=== PATIENT | female | born 1950 | race Caucasian/White ===

== ENCOUNTER → 2016-09-24 | Outpatient (CLI) | payer MEDICARE, OTHER ==
--- NOTE | 2016-09-24 22:54 | MR ---
EXAMINATION TYPE: MR brain wo con DATE OF EXAM: 09/24/2016 9:03 PM COMPARISON: NONE HISTORY: Epistaxis T1-weighted sagittal, T2, FLAIR, and diffusion axial, and T2 coronal coronal views of the brain are s ubmitted. There is no evidence of acute ischemia. The ventricles, basal cisterns, and sulci overlying the conv exities are consistent with the patient's age. There is no mass effect. Craniocervical junction maintained. Partially empty sella turcica noted. No cerebellopontine angle ma ss. There is mild generalized degenerative change. There is abnormal signal within the external capsule a nd basal ganglia bilaterally. Findings suggestive of remote infarctions. There appear most areas as w ell as confluent areas of abnormal signal throughout the white matter of both cerebral hemispheres in a nonspecific pattern. Changes of chronic sinusitis noted. IMPRESSION: 1. No acute intracranial process. 2. 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 Dem yelinating process not entirely excluded. 3. Chronic sinusitis.
== END | disposition home or self-care (01) ==
LOC: RADMRIMAIN 20:25
PROVIDERS: ATTEND Family Medicine
DX: R90.82 White matter disease, unspecified (principal); E04.0 Nontoxic diffuse goiter
CPT/HCPCS: 70551

== ENCOUNTER → 2017-03-06 | Outpatient (CLI) | payer MEDICARE, OTHER ==
--- NOTE | 2017-03-06 14:35 | MR ---
EXAMINATION TYPE: MR cervical spine wo con DATE OF EXAM: 03/06/2017 2:14 PM COMPARISON: NONE HISTORY: Cervicalgia Multiplanar MultiSpin echo imaging of the cervical spine was performed. Comparison: none C2-C3: No evidence for degenerative disc disease. No disc bulge/herniation or protrusion. No Canal stenosis. Foramina are patent bilaterally. C3-C4: No evidence for degenerative disc disease. No disc bulge/herniation or protrusion. No Canal stenosis. Foramina are patent bilaterally. C4-C5: Severe disc desiccation is noted. Circumferential disc bulge greatest posteriorly with encapsu lating spur resulting in hard disc. There is effacement of the ventral thecal sac with minimal ventra l cord contact. Mild central stenosis is identified. Degenerative change of the uncovertebral joints resulting in bilateral foraminal encroachment being mild in degree. C5-C6: Severe disc desiccation is noted. Circumferential disc bulge greatest posteriorly with encapsu lating spur resulting in hard disc. There is effacement of the ventral thecal sac with minimal ventra l cord contact. Mild central stenosis is identified. Degenerative change of the uncovertebral joints resulting in bilateral foraminal encroachment being mild in degree. C6-C7: Severe disc desiccation is noted. Circumferential disc bulge greatest posteriorly with encapsu lating spur resulting in hard disc. There is effacement of the ventral thecal sac with minimal ventra l cord contact. Mild central stenosis is identified. Degenerative change of the uncovertebral joints resulting in bilateral foraminal encroachment being mild in degree. C7-T1: No evidence for degenerative disc disease. No disc bulge/herniation or protrusion. No Canal stenosis. Foramina are patent bilaterally. Cervical segments are intact. There is normal alignment. Cervical spinal cord is of normal signal. Craniovertebral junction relationships are within normal limits. IMPRESSION: 1. Degenerative disc disease as discussed. 2. 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 No evidenc e for compressive myelopathy at this time.
== END | disposition home or self-care (01) ==
LOC: RADMRIMAIN 13:49
PROVIDERS: ATTEND Psychiatry & Neurology Neurology
DX: M48.02 Spinal stenosis, cervical region (principal); M50.30 Other cervical disc degeneration, unspecified cervical region; Z88.0 Allergy status to penicillin; Z88.2 Allergy status to sulfonamides
CPT/HCPCS: 72141

== ENCOUNTER → 2017-06-28 | Outpatient (CLI) | payer MEDICARE, OTHER ==
[2017-06-28 10:52] LABS: Basophils # (A) 0.1 k/uL (0-0.2); Basophils % (A) 1 %; Eosinophils # (A) 0.1 k/uL (0-0.7); Eosinophils % (A) 1 %; HCT 47.2 % (34.0-46.0); HGB 15.1 gm/dL (11.4-16.0); Lymphocytes # (A) 2.8 k/uL (1.0-4.8); Lymphocytes % (A) 28 %; MCH 29.9 pg (25.0-35.0); MCHC 31.9 g/dL (31.0-37.0); MCV 93.5 fL (80.0-100.0); Mean Platelet Volume 8.3; Monocytes # (A) 0.6 k/uL (0-1.0); Monocytes % (A) 6 %; Neutrophils # (A) 6.3 k/uL (1.3-7.7); Neutrophils % (A) 63 %; Platelet Count 231 k/uL (150-450); RBC 5.05 m/uL (3.80-5.40); RDW 14.8 % (11.5-15.5)
[2017-06-28 10:59] LABS: ALT 43 U/L (9-52); AST 24 U/L (14-36); Albumin 4.2 g/dL (3.5-5.0); Alkaline Phosphatase 75 U/L (38-126); Anion Gap 10 mmol/L; Blood Urea Nitrogen 19 mg/dL (7-17); Calcium 9.8 mg/dL (8.4-10.2); Carbon Dioxide 30 mmol/L (22-30); Chloride 105 mmol/L (98-107); Glucose 98 mg/dL (74-99); Potassium 3.5 mmol/L (3.5-5.1); Sodium 145 mmol/L (137-145); Total Bilirubin 1.1 mg/dL (0.2-1.3); Total Protein 6.9 g/dL (6.3-8.2)
[2017-06-28 11:15] LABS: T4, Free (Free Thyroxine) 1.26 ng/dL (0.78-2.19)
== END | disposition home or self-care (01) ==
LOC: LABWHC1 10:17
PROVIDERS: ATTEND Family Medicine
DX: E03.9 Hypothyroidism, unspecified (principal); E78.5 Hyperlipidemia, unspecified
CPT/HCPCS: 36415; 80053; 84439; 84443; 84481; 85025

== ENCOUNTER → 2018-07-17 | Outpatient (CLI) | payer MEDICARE, OTHER ==
[2018-07-17 11:22] LABS: Basophils % (A) 1 %; Eosinophils # (A) 0.1 k/uL (0-0.7); Eosinophils % (A) 2 %; HCT 44.2 % (34.0-46.0); HGB 14.4 gm/dL (11.4-16.0); Lymphocytes # (A) 1.9 k/uL (1.0-4.8); Lymphocytes % (A) 32 %; MCH 30.5 pg (25.0-35.0); MCHC 32.5 g/dL (31.0-37.0); MCV 93.8 fL (80.0-100.0); Mean Platelet Volume 8.1; Monocytes # (A) 0.4 k/uL (0-1.0); Monocytes % (A) 6 %; Neutrophils # (A) 3.4 k/uL (1.3-7.7); Neutrophils % (A) 56 %; Platelet Count 203 k/uL (150-450); RBC 4.71 m/uL (3.80-5.40); RDW 12.9 % (11.5-15.5)
[2018-07-17 16:20] LABS: Albumin 4.3 g/dL (3.80-4.90); Albumin/Globulin Ratio 2.39 (1.20-2.10); Calcium 9.6 mg/dL (8.7-10.3); Globulin 1.8 g/dL (1.6-3.3); LDL Cholesterol,Calculated 92.4 mg/dL (0.0-131.0); Potassium 4.5 mmol/L (3.5-5.5); Total Bilirubin 1.6 mg/dL (0.3-1.2); Total Protein 6.1 g/dL (6.2-8.2); VLDL Calculation 14.6 mg/dL (5.00-40.00)
[2018-07-17 16:28] LABS: T4, Free (Free Thyroxine) 1.4 ng/dL (0.80-1.80)
== END | disposition home or self-care (01) ==
LOC: LABWHC1 10:55
PROVIDERS: ATTEND Family Medicine
DX: E03.9 Hypothyroidism, unspecified (principal); E78.00 Pure hypercholesterolemia, unspecified
CPT/HCPCS: 36415; 80053; 80061; 84439; 84443; 84481; 85025